=== PATIENT | male | born 1980 | race Two or more races ===

== ENCOUNTER 2018-12-14 16:50 | Emergency (ER) | payer SELFPAY ==
--- NOTE | 2018-12-14 17:45 | ER Document Report ---
HPI - HPI Patient complains to provider of: left hand pain Onset: This morning Onset/Duration: Sudden, Persistent Quality of pain: Achy Severity: Mild Pain Level: 2 Context: 38 yr old male pt, with the listed pmh, here for left hand/fingers pain, weakness, and paresthesias since waking up this am. states he was in his usual state health yesterday prior to going to bed. he states he woke up and he was sleeping no hx of this before. he is right handed. 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 no neck pain. hasn't taken anything for his sx. no fall or trauma. no hx of diabetes or asthma. no recent abx or steroids. no hx of neuropathy. no numbness, weakness or tingling. no surgeries on this extremity or neck. hasn't sought care until now. no pain anywhere else. pt able to walk. denies intoxication. pain worse with movement and palpation. better with rest. no other fall or trauma or associated sx. no other complaints at this time. Associated Symptoms: None Exacerbated by: Movement Relieved by: Remaining still Similar symptoms previously: No Recently seen / treated by doctor: No - ROS Systems Reviewed and Negative: Yes All other systems reviewed and negative - to include 10 systems unless mentioned in the hpi Past Medical History - General Information source: Patient, Relative - daughter - Social History Smoking Status: Never Smoker Frequency of alcohol use: None Drug Abuse: None Lives with: Family Family History: Reviewed & Not Pertinent Patient has suicidal ideation: No Patient has homicidal ideation: No - Medical History Medical History: Negative Renal/ Medical History: Reports: None Surgical Hx: Negative - Immunizations Immunizations up to date: Yes Vertical Provider Document - CONSTITUTIONAL Agree With Documented VS: Yes Exam Limitations: No Limitations General Appearance: No Apparent Distress Notes: GENERAL_APPEARANCE: alert and oriented x 3, mood and affect wnl, cooperative, no obvious discomfort. Pleasant, obese male, who appears slightly older than stated age, smiling, speaking in full sentences, in no sign of pain or resp distress, easily sitting up, adolescent daughter at bedside who speaks good japanese. VITALS: reviewed, see vital signs table. HEAD: no_swelling\\tenderness on the head, normocephalic, atraumatic NECK: supple, no_neck_tenderness. full rom and full strength. no sign of central cord syndrome, meningitis, or spinal cord involvement HEART: RRR LUNGS: CTAB, good air exchange diffusely BACK: no_back_tenderness EXTREMITIES: good pulse in all extremities, left arm: left forearm, left wrist, and left thumb have no erythema, no swelling, no tenderness and no_abrasions\\lacerations other than as noted. Full rom and full strength other than pt has some weakness with left wrist extension, finger extension, and most pronounced in his left thumb extension. he can't give a thumbs up which he was able to before. he is able to touch his thumb to each of the other fingers however and make an "ok" sign with good strength. just slightly weaker than the right side however he states he was able to do this yesterday with equal strength bilat. Normal gait. good hand media relations manager other than slight decreased left hand media relations manager. brisk cap refill. no other shortening or rotation of the limbs or obvious deformities to suggest trauma unless otherwise noted. no other swelling or ttp. pos finklestein test. neg tinel and phalen. pt has a scar over the dorsal aspect of his left thumb which is chronic and unchanged and he has had from a remote accidental laceration s/p and is well healed. pt denies any prior residual effects from it and states it was just a minor and superficial cut then. he does have some mild ttp over the left brachioradialis as well. but no other ttp. neg snuff box ttp. brisk cap refill. no sign of compartment syndrome or cellulitis. SKIN: warm, dry, good_color. no rash. no other grossly visible overlying skin changes to suggest trauma. no thenar or hypothenar atrophy. NEURO: cerebellar function intact, motor_intact and sensory_intact in injured_extremity other than some slight subjective decreased sensation to light touch in the radial distribution of the left hand across fingers 1-3 and across the forearm. cranial nerves 2-12 intact - INFECTION CONTROL TRAVEL OUTSIDE OF THE [place] IN LAST 30 DAYS: No Course - Re-evaluation Re-evalutation: pt here for left hand weakness and paresthesias since waking up this am. it appears he has a likely radial nerve palsy. his triage left hand xr was neg per rad and reviewed by myself. pt informed of his findings. he was placed in a cockup wrist splint via registered dietetic technician. sensation intact post splint checked by myself. will dc with naproxen. advised sx care. ice/heat to the area. wear the splint until seen by pcp or ortho. advised to f/u with pcp/ortho in 1-2 days. return for any worsening symptoms. vss. well appearing. satting well on ra. neurononfocal unless mentioned otherwise. pt understands and agrees to plan. On reexam, pt improved with tx listed. remained stable. nontoxic. well appearing. pain controlled. tolerating po. requesting to go home. case discussed with ER Attending, Dr. petr camilo, who directed and agrees with plan of care and also saw and evaluated this pt and advised no further workup indicated at this time and pt is stable for dc home with close f/u with pcp/specialist and to dc with nsaids and place pt in a cock up wrist splint which i did. Documentation achieved through voice recording which may lead to some occasional accidental typographical errors. Extensive efforts have been made to proof read documentation to make sure these are the least as possible. Category Date Time Status Splint [Immobilize Extrem/Crutch (ED)] NOW Care 12/14/18 19:12 Completed HAND LEFT 3 VIEWS [RAD] Stat Exams 12/14/18 17:44 Completed - Vital Signs Vital signs: Temp Pulse Resp BP Pulse Ox 97.3 F 64 16 138/77 H 95 12/14/18 16:56 12/14/18 16:56 12/14/18 16:56 12/14/18 16:56 12/14/18 16:56 Temp Pulse Pulse Resp BP BP Pulse Ox 12/14/18 19:49 98.6 F 64 16 129/83 H 98 12/14/18 16:56 97.3 F 64 16 138/77 H 95 - Diagnostic Test Radiology reviewed: Image reviewed, Reports reviewed Radiology results interpreted by me: Hand X-Ray 12/14/18 17:44 IMPRESSION: No acute bone abnormality of the left hand. Discharge - Discharge Clinical Impression: Left radial nerve palsy Radiculopathy Qualifiers: Spinal region: unspecified Qualified Code(s): M54.10 - Radiculopathy, site unspecified Condition: Good Disposition: HOME, SELF-CARE Instructions: Radiculopathy ([facility]), Tendonitis ([facility]), Weakness ([facility]) Additional Instructions: Follow-up with PCP/ortho in 1 to 2 days. Return for any worsening symptoms. wear the splint until seen by ortho. do not take any other NSAIDs with the naproxen. keep the splint clean and dry. rest your arm. Prescriptions: Naproxen 500 mg PO BID PRN #20 tablet PRN Reason: Referrals: NATALIIA CHILDRESS MD [ACTIVE STAFF] - Follow up in 3-5 days
--- NOTE | 2018-12-14 18:14 | RADIOLOGY REPORT (SQ) ---
EXAM DESCRIPTION: HAND LEFT 3 VIEWS COMPLETED DATE/TIME: 12/14/2018 5:59 pm REASON FOR STUDY: pain COMPARISON: None. EXAM PARAMETERS: NUMBER OF VIEWS: Three views. TECHNIQUE: AP, lateral and oblique radiographic images acquired of the left hand. LIMITATIONS: None. FINDINGS: MINERALIZATION: Normal. BONES: No acute fracture or dislocation. No worrisome bone lesions. JOINTS: No effusions. SOFT TISSUES: No soft tissue swelling. No foreign body. OTHER: No other significant finding. IMPRESSION: No acute bone abnormality of the left hand. TECHNICAL DOCUMENTATION: JOB ID: [id number] [employer]- All Rights Reserved Reading location - IP/workstation name: [email or web address]
--- NOTE | 2018-12-14 19:40 | ER Document Report ---
Doctor's Note Notes: I personally and independently obtained patient history and examined the patient in conjunction with the APC and agree with the assessment, treatment plan and disposition of the patient as recorded by the APC, and have reviewed the APC's note. HISTORY OF PRESENT ILLNESS: Patient is a 38-year-old male that presents to the emergency department for chief complaint of left hand weakness. Patient apparently slept in an awkward position last night, had some mild neck pain, and is having some weakness, with extension of his left wrist. ROS: Constitutional: Negative for fever. Cardiovascular: Negative for chest pain. Respiratory: Negative for shortness of breath. Gastrointestinal: Negative for vomiting or abdominal pain Musculoskeletal: Negative for arm, leg or back pain Skin: Negative for rash. Neurological: Negative for weakness or numbness. Other than noted above, the 12 point review of systems was reviewed with the patient and were negative, all pertinent findings are included in the HPI. PHYSICAL EXAMINATION: Vital signs reviewed, nursing noted reviewed. GENERAL: Well-appearing, well-nourished and in no acute distress. HEAD: Atraumatic, normocephalic. EYES: Eyes appear normal, conjunctiva are normal. NECK: Normal range of motion, supple without lymphadenopathy, no significant pain with range of motion. LUNGS: No respiratory distress EXTREMITIES: Nontender, good range of motion, no pitting or edema. With the exception of left wrist extension and thumb extension, which the patient has we akness with as noted below. NEUROLOGICAL: Weakness with left wrist extension, and thumb extension, with slightly decreased sensation on the left as well compared to the right. The rest the patient's neurological exam is unremarkable, good wrist flexion, and flexion of the fingers and thumb. Patient has good pincer grasp, and general passenger agent strength, good strength with extension and flexion of the elbow on the left, good strength in the shoulder. No other neurological deficits noted. PSYCH: Normal mood, normal affect. SKIN: Warm, Dry, normal turgor, no rashes or lesions noted on exposed skin MEDICAL DECISION MAKING: Patient's clinical exam is most consistent with a radial nerve palsy, possible from awkward sleep position, versus cervical impingement, although the patient does not have significant neck pain at this time. Advise follow-up with orthopedics, placed in a cock-up splint, and NSAIDs. Please review detail APC documentation. *Note is created using voice recognition software and may contain spelling, syntax or grammatical errors.
[2018-12-14 19:51] VITALS: BP 129/83
== END 2018-12-14 19:51 | disposition home or self-care (01) ==
LOC: ER 16:50
DX: G56.32 Lesion of radial nerve, left upper limb (principal); R53.1 Weakness; R20.2 Paresthesia of skin; Z87.828 Personal history of other (healed) physical injury and trauma
CPT/HCPCS: 99283; 73130; L3908